=== PATIENT | male | born 1965 | race Caucasian/White ===

== ENCOUNTER 2017-01-18 18:27 | Emergency (ER) | payer MEDICAID ==
--- NOTE | 2017-01-18 18:33 | EDPHY ---
H & P HPI/ROS: CHIEF COMPLAINT: EtOH. HISTORY OF PRESENT ILLNESS: The patient is a 51-year-old male with alcoholism who presents in PD custody for alcohol intoxication. He was intoxicated in public. PD brought him here for med clearance. He is on an [facility] hold. Unclear how much he drank today. He has no complaints at this time. No recent illness. REVIEW OF SYSTEMS: A complete 10-point review of systems was performed and is negative except for those items mentioned in the HPI. Past Medical/Surgical History: Denies. Social History: Alcohol abuse. Physical Exam: General Appearance: Alert, slurred speech, speaking loudly Eyes: Pupils equal and round, no conjunctival pallor ENT, Mouth: Mucous membranes moist Neck: Normal inspection Respiratory: Lungs are clear to auscultation, no wheezing Cardiovascular: Regular rate and rhythm Gastrointestinal: Abdomen is soft and non-tender Neurological: A&O, nonfocal, steady gait Skin: Warm and dry Extremities: Normal inspection Psychiatric: Mood and affect normal Constitutional: Initial Vital Signs Temperature (C) 36.5 C 01/18/17 18:27 Heart Rate 104 H 01/18/17 18:27 Respiratory Rate 16 01/18/17 18:27 Blood Pressure 130/88 H 01/18/17 18:27 O2 Sat (%) 98 01/18/17 18:27 O2 Delivery Mode Room Air Allergies/Adverse Reactions: No Known Allergies Allergy (Verified 09/27/16 20:54) Home Medications: Medication Instructions Recorded NK [No Known Home Meds] 09/27/16 Medical Decision Making ED Course/Re-evaluation: Patient's alcohol level is 277. He has been med cleared for the [facility]. Departure - Departure Disposition: Home, Routine, Self-Care Clinical Impression: Alcohol intoxication Condition: Good Instructions: Alcohol Intoxication (ED) Additional Instructions: Return for any worsening of condition. Referrals: [facility] 24 Hours [Outside] - As per Instructions Report Scribed for: Aziza Tamez Report Scribed by: Amado Lugo Date of Report: 01/18/17 Time of Report: 18:36 Physician Review and Approval Statement: 01/18/17 18:38 Portions of this note were transcribed by a medical customer service representative. I personally performed a history, physical exam, medical decision making, and confirmed accuracy of information the transcribed note.
[2017-01-18 18:45] VITALS: BP 130/88; PULSE 104; RESP 16; TEMP 97.7; O2SAT 98
== END 2017-01-18 19:06 | disposition home or self-care (01) ==
LOC: EDUNIT#
DX: F10.129 Alcohol abuse with intoxication, unspecified (principal)

== ENCOUNTER 2017-06-26 16:48 | Emergency (ER) | payer MEDICAID ==
--- NOTE | 2017-06-26 16:57 | EDPHY ---
H & P HPI/ROS: HPI CHIEF COMPLAINT: Alcohol intoxication, unable to walk HISTORY OF PRESENT ILLNESS: This patient 52-year-old male homeless, daily alcohol use, tells me drank a large amount of vodka this evening. He presents emergency room by [facility] as he is unable to walk. No trauma. Past Medical History: Chronic alcohol use Past Surgical History: Denies recent surgical history Social History: Daily alcohol use, smokes tobacco, denies illicit drugs Family History: Noncontributory ROS REVIEW OF SYSTEMS: A comprehensive 10 point review of systems is otherwise negative aside from elements mentioned in the history of present illness. Exam Constitutional intoxicated, smells of alcohol, pleasant, triage nursing summary reviewed, vital signs reviewed, awake/alert. Eyes normal conjunctivae and sclera, EOMI, PERRLA. HENT normal inspection, atraumatic, moist mucus membranes, no epistaxis, neck supple/ no meningismus, no raccoon eyes. Respiratory clear to auscultation bilaterally, normal breath sounds, no respiratory distress, no wheezing. Cardiovascular rate normal, regular rhythm, no murmur, no edema, distal pulses normal. Gastrointestinal soft, non-tender, no rebound, no guarding, normal bowel sounds, no distension, no pulsatile mass. Genitourinary no CVA tenderness. Musculoskeletal no midline vertebral tenderness, full range of motion, no calf swelling, no tenderness of extremities, no meningismus, good pulses, neurovascularly intact. Skin pink, warm, & dry, no rash, skin atraumatic. Neurologic awake, alert and oriented x 3, AAOx3, moves all 4 extremities equally, motor intact, sensory intact, CN II-XII intact, normal vision, normal speech. Psychiatric normal mood/affect. Heme/Lymph/Immune no lymphadenopathy. Differential Diagnosis: Includes but is not limited to in a particular order acute alcohol intoxication, alcohol intoxication causing him unable to walk. Medical Decision Making: Plan for this patient breath alcohol. Watch closely for sobriety. Once sober unable to ambulate he can be discharged to the [facility]. Re-evaluation: Breath alcohol 224. Will attempt to ambulate this patient. If he can ambulate safely he can be discharged to the [facility]. Source: Patient, EMS - Personal History Tetanus Vaccine Date: < 10 years - Medical/Surgical History Hx Asthma: No Hx Chronic Respiratory Disease: No Hx Diabetes: No Hx Cardiac Disease: No Hx Renal Disease: No Hx Cirrhosis: No Hx Alcoholism: No Hx HIV/AIDS: No Hx Splenectomy or Spleen Trauma: No Other PMH: bilateral knee pain especially left knee, broken fibula,. IV drug use, PTSD, pt states he was diagnosed with bipolar - Social History Smoking Status: Current every day smoker Constitutional: Initial Vital Signs Temperature (C) 36.8 C 06/26/17 16:48 Heart Rate 102 H 06/26/17 16:48 Respiratory Rate 14 06/26/17 16:48 Blood Pressure 106/72 06/26/17 16:48 O2 Sat (%) 95 06/26/17 16:48 O2 Delivery Mode Room Air O2 (L/minute) 2 Allergies/Adverse Reactions: No Known Allergies Allergy (Verified 09/27/16 20:54) Home Medications: Medication Instructions Recorded NK [No Known Home Meds] 09/27/16 Medical Decision Making - Data Points Medications Given: Discontinued Medications Chlordiazepoxide (Librium 25 Mg Prepack#6) [facility] Stop: 06/26/17 19:44 Last Admin: 06/26/17 19:58 Dose: 1 btl Departure - Departure Disposition: Home, Routine, Self-Care Clinical Impression: Alcoholic intoxication Qualifiers: Complication of substance-induced condition: uncomplicated Qualified Code(s): F10.920 - Alcohol use, unspecified with intoxication, uncomplicated Condition: Good Instructions: Alcohol Intoxication (ED) Referrals: Patient,NotPresent [Primary Care Provider] - As per Instructions
[2017-06-26] MEDS ORDERED: CHLORDIAZEPOXIDE 25MG PREPK#6 BTL TAKEHOME ONE (19:43)
[2017-06-26 20:01] VITALS: BP 122/74; PULSE 97; RESP 18; TEMP 98.4; O2SAT 91
== END 2017-06-26 20:15 | disposition home or self-care (01) ==
LOC: EDUNIT#
DX: F10.120 Alcohol abuse with intoxication, uncomplicated (principal); F17.200 Nicotine dependence, unspecified, uncomplicated

== ENCOUNTER 2017-12-05 22:19 | Emergency (ER) | payer SELFPAY ==
[2017-12-05 22:23] VITALS: RESP 16; TEMP 98.2
--- NOTE | 2017-12-05 22:33 | EDPHY ---
H & P Time Seen by Provider: 12/05/17 22:29 HPI/ROS: CHIEF COMPLAINT: Right wrist pain HISTORY OF PRESENT ILLNESS: 52-year-old ambidextrous male states that last evening approximately 2 hr ago he slipped on ice and on outstretched right hand. No paresthesia. No sensory or motor deficit. PHYSICAL EXAM (Prior to examination, patient consented to physical exam, hands were washed and my usual and customary physical exam procedures followed) 1) GENERAL: Well-developed, well-nourished, alert and oriented. Appears to be in no acute distress. 2) HEAD: Normocephalic 3) HEENT: Pupils equal, round, reactive to light bilaterally. 4) LUNGS: Breathing comfortably. 5) MUSCULOSKELETAL: Tender to palpation with soft tissue swelling right distal radius. Intact skin. Soft compartments. Normal coloration. 6) SKIN: Intact 7) VASCULAR: pulses and cap refill present are brisk 8) NEUROLOGIC: Radial, ulnar, median nerve function intact with no deficits appreciated on exam DIFFERENTIAL DIAGNOSIS: in no particular order including but not limited to fracture, sprain, compartment syndrome Procedure: Splint A splint was applied by ER electrical equipment technician. After application of the splint I returned and re-examined the patient. The splint was adequately immobilizing the joint and distal to the splint the patient's circulation and sensation were intact. Patient shows no signs of compartment syndrome. Was given orthopedic precautions. Smoking Status: Current every day smoker Constitutional: Initial Vital Signs Temperature (C) 36.8 C 12/05/17 22:21 Heart Rate 104 H 12/05/17 22:21 Respiratory Rate 16 12/05/17 22:21 Blood Pressure 122/86 H 12/05/17 22:21 O2 Sat (%) 95 12/05/17 22:21 O2 Delivery Mode Room Air Allergies/Adverse Reactions: No Known Allergies Allergy (Verified 09/27/16 20:54) Home Medications: Medication Instructions Recorded NK [No Known Home Meds] 09/27/16 MDM/Departure - MDM Procedures: Procedure: Splint A Velcro volar splint was applied by ER electrical equipment technician. After application of the splint I returned and re-examined the patient. The splint was adequately immobilizing the joint and distal to the splint the patient's circulation and sensation were intact. Patient shows no signs of compartment syndrome. Was given orthopedic precautions. Medications Given: Discontinued Medications Ibuprofen (Motrin) 800 mg PO EDNOW ONE Stop: 12/05/17 23:22 Last Admin: 12/05/17 23:22 Dose: 800 mg Oxycodone/Acetaminophen (Percocet 5/325) 1 tab PO EDNOW ONE Stop: 12/05/17 23:26 Last Admin: 12/05/17 23:27 Dose: 1 tab - Depart Disposition: Home, Routine, Self-Care Clinical Impression: Distal radius fracture, right Qualifiers: Encounter type: initial encounter Fracture type: closed Fracture morphology: other intra-articular Qualified Code(s): S52.571A - Other intraarticular fracture of lower end of right radius, initial encounter for closed fracture Condition: Good Instructions: Wrist Fracture in Adults (ED) Additional Instructions: Return to the ER immediately if you experience discoloration, have worsening pain, numbness, tingling, or any other symptoms that concern you. If you received x-rays in the emergency department today, be advised, that ligamentous , tendon, muscular, and other non-bony injury cannot be fully ruled out. Try to keep your affected extremity elevated above the level of your chest, and keep cold packs on the affected area, for the next 48 hours. Adult Pain & Fever Control: We recommend Acetaminophen (Tylenol) and Ibuprofen (Motrin,Advil) for pain and fever control. When fever is high or pain severe, both drugs can be used at the same time, but at different intervals. Please note the time differences. Your dose is: Acetaminophen 650mg every 4 to 6 hours Ibuprofen 600mg every 6 hours with food OR Note: do not take Acetaminophen with Hydrocodone (Vicodin, Lortab) or Oycodone (Percocet). These medications also contain Acetaminophen. No more than 3000mg of Acetaminophen should be taken in 24 hours (for an adult). Referrals: Syed Ramirez MD [Medical Doctor] - 2-3 days, call for appt.
[2017-12-05] MEDS ORDERED: IBUPROFEN 800 MG TAB PO ONE ×2 (23:19→23:21)
[2017-12-05 23:24] VITALS: BP 109/90; PULSE 99; O2SAT 97
[2017-12-05] MEDS ORDERED: OXYCODONE/APAP 5/325 TAB PO ONE (23:25)
== END 2017-12-05 23:24 | disposition home or self-care (01) ==
DX: S52.571A Other intraarticular fracture of lower end of right radius, initial encounter for closed fracture (principal); F17.200 Nicotine dependence, unspecified, uncomplicated; W00.0XXA Fall on same level due to ice and snow, initial encounter
CPT/HCPCS: L3908

== ENCOUNTER 2018-02-05 22:25 | Emergency (ER) | payer SELFPAY ==
--- NOTE | 2018-02-05 22:37 | EDPHY ---
H & P Stated Complaint: R KNEE/R WRIST PAIN, SEPARATE INJURIES/ SEVERAL WEEKS PRIOR Time Seen by Provider: 02/05/18 22:37 HPI/ROS: HPI CHIEF COMPLAINT: Right wrist pain, right knee pain status post fall 10-14 days ago HISTORY OF PRESENT ILLNESS: Patient is a 52-year-old male, presents emergency room after he had a fall at some point in last 2 weeks. He thinks 10-14 days ago. Patient states that he fell on his right wrist right knee. Since then he has had ongoing pain. Currently complains of 3/10 pain. Denies any other areas of injury. Past Medical History: Alcoholism, methamphetamine abuse, polysubstance abuse, homelessness Past Surgical History: No recent surgery Social History: Homeless, polysubstance abuse. Most recently did methamphetamine this morning. Family History: Noncontributory ROS REVIEW OF SYSTEMS: A comprehensive 10 point review of systems is otherwise negative aside from elements mentioned in the history of present illness. Exam Constitutional triage nursing summary reviewed, vital signs reviewed, awake/ alert. Eyes normal conjunctivae and sclera, EOMI, PERRLA. HENT normal inspection, atraumatic, moist mucus membranes, no epistaxis, neck supple/ no meningismus, no raccoon eyes. Respiratory clear to auscultation bilaterally, normal breath sounds, no respiratory distress, no wheezing. Cardiovascular rate normal, regular rhythm, no murmur, no edema, distal pulses normal. Gastrointestinal soft, non-tender, no rebound, no guarding, normal bowel sounds, no distension, no pulsatile mass. Genitourinary no CVA tenderness. Musculoskeletal examination of the right wrist and right knee are unremarkable for acute trauma. I do not appreciate any significant traumatic injury on exam , no midline vertebral tenderness, full range of motion, no calf swelling, no tenderness of extremities, no meningismus, good pulses, neurovascularly intact. Skin pink, warm, & dry, no rash, skin atraumatic. Neurologic awake, alert and oriented x 3, AAOx3, moves all 4 extremities equally, motor intact, sensory intact, CN II-XII intact, normal cerebellar, normal vision, normal speech. Psychiatric normal mood/affect. Heme/Lymph/Immune no lymphadenopathy. Differential Diagnosis: Includes but is not limited to in a particular order right wrist contusion, right wrist sprain, right wrist fracture, right wrist soft tissue injury, right knee contusion, right knee sprain, right knee fracture Medical Decision Making: Plan for this patient x-ray right wrist, right knee x- ray. Re-evaluation: X-ray of the knee and x-ray of the wrist negative for acute new fracture. X- ray of the wrist does show an old fracture. Was seen on x-ray 3 months ago. He will be placed in a Velcro splint. And recommend follow up with Orthopedics on outpatient basis. Source: Patient - Personal History Current Tetanus Diphtheria and Acellular Pertussis (TDAP): No Tetanus Vaccine Date: < 10 years - Medical/Surgical History Hx Asthma: No Hx Chronic Respiratory Disease: No Hx Diabetes: No Hx Cardiac Disease: No Hx Renal Disease: No Hx Cirrhosis: No Hx Alcoholism: No Hx HIV/AIDS: No Hx Splenectomy or Spleen Trauma: No Other PMH: bilateral knee pain especially left knee, broken fibula,. IV drug use, PTSD, pt states he was diagnosed with bipolar, METH USE - Social History Smoking Status: Light smoker Constitutional: Initial Vital Signs Temperature (C) 37.2 C 02/05/18 22:33 Heart Rate 107 H 02/05/18 22:33 Respiratory Rate 16 02/05/18 22:33 Blood Pressure 141/115 H 02/05/18 22:33 O2 Sat (%) 95 02/05/18 22:33 O2 Delivery Mode Room Air Allergies/Adverse Reactions: No Known Allergies Allergy (Verified 09/27/16 20:54) Home Medications: Medication Instructions Recorded NK [No Known Home Meds] 09/27/16 Departure - Departure Disposition: Home, Routine, Self-Care Clinical Impression: Contusion Qualifiers: Encounter type: initial encounter Contusion area: lower leg Laterality: right Qualified Code(s): S80.11XA - Contusion of right lower leg, initial encounter Condition: Good Instructions: Contusion in Adults (ED) Additional Instructions: 1. I recommend that you ice her joints. Ice her knee and wrist. 2. I recommend that you keep your leg elevated. Referrals: NONE *PRIMARY CARE P,. [Primary Care Provider] - As per Instructions Conner Evans MD [Medical Doctor] - As per Instructions
[2018-02-05 22:42] VITALS: BP 141/115; PULSE 107; RESP 16; TEMP 99; O2SAT 95
[2018-02-05] MEDS ORDERED: IBUPROFEN 800 MG TAB PO ONE (23:31)
== END 2018-02-05 23:35 | disposition home or self-care (01) ==
DX: S80.11XA Contusion of right lower leg, initial encounter (principal); F17.200 Nicotine dependence, unspecified, uncomplicated; W19.XXXA Unspecified fall, initial encounter

== ENCOUNTER 2018-05-22 06:28 | Emergency (ER) | payer SELFPAY ==
[~2018-05-22 06:28] MED LIST: CEPHALEXIN 500 MG CAP PO SCH
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
[2018-05-22] MEDS ORDERED: IBUPROFEN 200 MG TAB PO ONE (08:22)
[2018-05-22 08:40] VITALS: BP 156/87
== END 2018-05-22 08:41 | disposition home or self-care (01) ==
DX: L03.011 Cellulitis of right finger (principal); F17.210 Nicotine dependence, cigarettes, uncomplicated

== ENCOUNTER 2018-05-28 12:47 | Emergency (ER) | payer SELFPAY ==
[2018-05-28 12:51] VITALS: BP 121/95
--- NOTE | 2018-05-28 13:01 | EDPHY ---
H & P Time Seen by Provider: 05/28/18 12:52 HPI/ROS: CHIEF COMPLAINT: Recheck right index finger HISTORY OF PRESENT ILLNESS: 53-year-old homeless male arrives in custody of police for medical screening prior to incarceration. He has a history of alcohol abuse, PTSD, bipolar disorder, was seen the ER 6 days ago concerned about his right index finger after he brought the tip of his index finger 10 days prior, started on Keflex which he has now lost. Took 2 dosages of Keflex. Up-to-date tetanus. PHYSICAL EXAM (Prior to examination, patient consented to physical exam, hands were washed and my usual and customary physical exam procedures followed) 1) GENERAL: Well-developed, well-nourished, alert and oriented. Appears to be in no acute distress. 2) HEAD: Normocephalic 3) HEENT: sclera anicteric 4) LUNGS: Breathing comfortably. 5) SKIN: Right index finger granulating tissue to the distal aspect with negative kanavel sign, no discharge, no purulence, no fetid odor, no pain along the flexor tendon sheath. There is slight erythema along the skin edges however this is subtle cellulitic change. Smoking Status: Heavy smoker Constitutional: Initial Vital Signs Temperature (C) 36.6 C 05/28/18 12:49 Heart Rate 104 H 05/28/18 12:49 Respiratory Rate 18 05/28/18 12:49 Blood Pressure 121/95 H 05/28/18 12:49 O2 Sat (%) 93 05/28/18 12:49 O2 Delivery Mode Room Air Allergies/Adverse Reactions: No Known Allergies Allergy (Verified 05/28/18 12:48) Home Medications: Medication Instructions Recorded Cephalexin [Keflex] 500 mg PO TID 10 Days cap 05/28/18 Sulfamethox/Tmp 800/160 mg 1 tab PO BID@1000,2200 10 Days tab 05/28/18 [Bactrim Ds] MDM/Departure - MDM ED Course/Re-evaluation: I reviewed the patient's old medical records. On exam today he has mild signs of cellulitis around his wound however he has negative kanavel signs, no clinical indication of deep space infection, infectious tenosynovitis or need for hospitalization or emergent hand surgery consultation. He has been given a prescription for Keflex and Bactrim, discharged back to the [facility]. Usual and customary wound precautions instructions provided. I saw this patient independently based on established practice protocols. Care of patient under supervision of primary supervising physician Dr Abernathy . - Depart Disposition: Law Enforcement/Court/[facility] Clinical Impression: Cellulitis, finger Qualifiers: Laterality: right Qualified Code(s): L03.011 - Cellulitis of right finger Condition: Good Instructions: Cellulitis (ED) Additional Instructions: Return to the ER if you develop redness, swelling, discharge, warmth to the wound, red streaks going up your arm, or any other symptoms that concern you. Prescriptions: Cephalexin [Keflex] 500 mg PO TID 10 Days cap Sulfamethox/Tmp 800/160 mg [Bactrim Ds] 1 tab PO BID@1000,2200 10 Days tab Referrals: Follow-up, with the [place] [facility] nurse in 1 day [Other] - As per Instructions
== END 2018-05-28 13:13 ==
LOC: EEVIPCON 12:47
DX: L03.011 Cellulitis of right finger (principal); F17.200 Nicotine dependence, unspecified, uncomplicated

== ENCOUNTER 2018-08-18 01:20 | Emergency (ER) | payer SELFPAY ==
[2018-08-18] MEDS ORDERED: IBUPROFEN 600 MG TAB PO ONE (02:12)
--- NOTE | 2018-08-18 03:19 | EDPHY ---
H & P Stated Complaint: R ELBOW INJ 2 WKS/HITTING IT ON DOOR JAM Time Seen by Provider: 08/18/18 02:38 HPI/ROS: Chief Complaint: Elbow pain HPI: 53-year-old male presenting with right elbow pain for the last 2 weeks after he struck it on a door. Patient states that the pain is been persisting. He did not initially follow-up with any care. He has not been taking any medicines. Does have a prior injury. No redness, no swelling, no fevers or chills. ROS: 10 systems were reviewed and were negative except those elements noted in the HPI. PMH: Denies Social History: Positive smoking, positive alcohol Family History: non-contributory Physical Exam: General: Awake, alert, no acute distress Right elbow, nontender, no erythema, there is small abrasions over the olecranon which do not appear infected, no bony tenderness, full range of motion without pain. Skin: No rash - Personal History Current Tetanus Diphtheria and Acellular Pertussis (TDAP): Unsure Tetanus Vaccine Date: < 10 years - Medical/Surgical History Hx Asthma: No Hx Chronic Respiratory Disease: No Hx Diabetes: No Hx Cardiac Disease: No Hx Renal Disease: No Hx Cirrhosis: No Hx Alcoholism: Yes Hx HIV/AIDS: No Hx Splenectomy or Spleen Trauma: No Other PMH: bilateral knee pain especially left knee, broken fibula,. IV drug use, PTSD, pt states he was diagnosed with bipolar, METH USE - Social History Smoking Status: Heavy smoker Constitutional: Initial Vital Signs Temperature (C) 37.4 C 08/18/18 01:28 Heart Rate 107 H 08/18/18 01:28 Respiratory Rate 16 08/18/18 01:28 Blood Pressure 130/80 H 08/18/18 01:28 O2 Sat (%) 96 08/18/18 01:28 O2 Delivery Mode Room Air Allergies/Adverse Reactions: No Known Allergies Allergy (Verified 05/28/18 12:48) Home Medications: Medication Instructions Recorded NK [No Known Home Meds] 08/18/18 Medical Decision Making ED Course/Re-evaluation: Right elbow x-ray is negative. No signs of acute injury. Will discharge with follow-up as an outpatient. - Data Points Medications Given: Discontinued Medications Ibuprofen (Motrin) 600 mg PO EDNOW ONE Stop: 08/18/18 02:13 Last Admin: 08/18/18 02:37 Dose: 600 mg Departure - Departure Disposition: Home, Routine, Self-Care Clinical Impression: Elbow pain Condition: Good Instructions: Arthralgia (ED) Additional Instructions: Follow up at [facility] in 3-4 days for further evaluation. You may alternate acetaminophen with ibuprofen as needed for pain. Referrals: [facility],. [Clinic] - As per Instructions
[2018-08-18 05:02] VITALS: BP 129/83
== END 2018-08-18 05:01 | disposition home or self-care (01) ==
DX: M25.521 Pain in right elbow (principal); W22.8XXA Striking against or struck by other objects, initial encounter

== ENCOUNTER 2018-11-14 13:10 | Emergency (ER) | payer MEDICAID ==
[~2018-11-14 13:10] MED LIST changes: -CEPHALEXIN 500 MG CAP PO SCH; +SULFAMETHOX/TMP 800/160 MG 1 TAB PO SCH
--- NOTE | 2018-11-14 13:43 | EDPHY ---
H & P Stated Complaint: R index finger poss infection Time Seen by Provider: 11/14/18 13:43 HPI/ROS: CHIEF COMPLAINT: Chronic wound on right index finger HISTORY OF PRESENT ILLNESS: The patient presents to the ED with a chronic wound on the dorsal aspect of his right index finger which is present for the past 2-3 months. The patient has some skin cracking which developed in the area. It has been slow to heal. The patient denies any fever. There is small amount of surrounding erythema. He has normal range of motion of the finger without significant pain. The patient has a history drug and polysubstance abuse. He is not interested in detox. The patient denies any acute abdominal pain, vomiting or other concerns. REVIEW OF SYSTEMS: A comprehensive 10 point review of systems is otherwise negative aside from elements mentioned in the history of present illness. Source: Patient Exam Limitations: No limitations - Personal History Current Tetanus/Diphtheria Vaccine: Yes Tetanus Vaccine Date: < 10 years - Medical/Surgical History Hx Asthma: No Hx Chronic Respiratory Disease: No Hx Diabetes: No Hx Cardiac Disease: No Hx Renal Disease: No Hx Cirrhosis: No Hx Alcoholism: Yes Hx HIV/AIDS: No Hx Splenectomy or Spleen Trauma: No Other PMH: bilateral knee pain especially left knee, broken fibula,. IV drug use, PTSD, pt states he was diagnosed with bipolar, METH USE - Social History Smoking Status: Heavy smoker - Physical Exam Exam: General Appearance: Alert, no distress Head: Atraumatic Eyes: Pupils equal, round, reactive ENT, Mouth: No hemotympanum, no oral trauma Neck: Nontender, trachea midline Respiratory: No chest wall tender, subcutaneous air, lungs clear bilaterally Cardiovascular: Regular rate and rhythm Abdomen: Abdomen is soft and nontender, pelvis stable Skin: Superficial cellulitis noted to the dorsal aspect of the right index finger with area of skin cracking and hyperkeratosis. Back: No midline T/L/S pain Extremities: No clinical evidence of a septic arthritis, tenosynovitis or necrotizing fasciitis Neurological: A&Ox3, normal motor function, normal sensory exam Constitutional: Initial Vital Signs Temperature (C) 36.6 C 11/14/18 13:26 Heart Rate 94 11/14/18 13:26 Respiratory Rate 16 11/14/18 13:26 Blood Pressure 118/82 H 11/14/18 13:26 O2 Sat (%) 96 11/14/18 13:26 O2 Delivery Mode Room Air Allergies/Adverse Reactions: No Known Allergies Allergy (Verified 11/14/18 13:25) Home Medications: Medication Instructions Recorded NK [No Known Home Meds] 08/18/18 Medical Decision Making ED Course/Re-evaluation: The patient is started on oral Bactrim for a mild soft tissue infection. The patient is given the contact number of our on-call hand surgeon for further evaluation and management. He has no clinical evidence of a septic arthritis, abscess, tenosynovitis or necrotizing fasciitis. Departure - Departure Disposition: Home, Routine, Self-Care Clinical Impression: Cellulitis of finger of right hand Condition: Good Instructions: Cellulitis (ED) Additional Instructions: 1. Please take antibiotics as directed for next 10 days. 2. Please schedule a follow-up appointment with [facility] for a recheck within the week. 3. He have been given the contact number of our on-call hand surgeon Dr. Luna Referrals: Dontae Luna MD [Medical Doctor] - As per Instructions
[2018-11-14] MEDS ORDERED: SULFAMETHOX/TMP 800/160 MG 1 TAB PO ONE (13:55)
[2018-11-14] MEDS ORDERED: SULFAMETHOX/TMP 800/160 MG 1 TAB ONE (13:55)
[2018-11-14] MEDS ORDERED: SULFAMET/TMP DS PREPACK#2 BTL TAKEHOME ONE (14:07)
[2018-11-14] MEDS ORDERED: CHLORDIAZEPOXIDE 25MG PREPK#6 BTL TAKEHOME ONE ×2 (14:31→14:32)
[2018-11-14 14:37] VITALS: BP 122/87
== END 2018-11-14 14:37 | disposition home or self-care (01) ==
DX: L03.011 Cellulitis of right finger (principal)

== ENCOUNTER 2018-11-29 03:33 | Emergency (ER) | payer MEDICAID ==
--- NOTE | 2018-11-29 03:41 | EDPHY ---
H & P - Personal History Tetanus Vaccine Date: < 10 years - Medical/Surgical History Hx Asthma: No Hx Chronic Respiratory Disease: No Hx Diabetes: No Hx Cardiac Disease: No Hx Renal Disease: No Hx Cirrhosis: No Hx Alcoholism: Yes Hx HIV/AIDS: No Hx Splenectomy or Spleen Trauma: No Other PMH: bilateral knee pain especially left knee, broken fibula,. IV drug use, PTSD, pt states he was diagnosed with bipolar, METH USE - Social History Smoking Status: Heavy smoker Time Seen by Provider: 11/29/18 03:38 HPI/ROS: Chief Complaint: Altered mental status HPI: 53-year-old male's brought in by EMS from the [facility] for behavioral changes. [place] [employer] officer they have encounter the patient multiple times this evening and ultimately took him to the alf. He is known to be a methamphetamine user. Patient was released from the alf and walked to the arc. There EMS was called for evaluation. On arrival the patient was argumentative and became combative. EMS administered 5 mg of Versed intramuscularly. Patient brought here restrained. Is now sedate. Per EMS are no obvious signs of trauma. information security officer who is present in the emergency department states that he does not know of any trauma to the patient and that the patient told him earlier this evening that he last used meth yesterday. Patient did not meet any criteria for mental health hold during initial police encounter. ROS: Unavailable secondary to the patient's altered mental status PMH: Unknown Social History: Meth use per EMS and police Family History: non-contributory Physical Exam: Gen: Somnolent, maintaining airway HEENT: Nose: no rhinorrhea Eyes: PERRLA, EOMI Mouth: Moist mucosa Neck: Supple, no JVD Chest: nontender, lungs clear to auscultation Heart: S1, S2 normal, no murmur Abd: Soft, non-tender, no guarding Back: no CVA tenderness, no midline tenderness Ext: no edema, non-tender Skin: no rash Neuro: CN II-XII intact, Sensation grossly intact, Strength 5/5 in bilateral upper and lower extremities (Clarence Quach) Constitutional: Initial Vital Signs Temperature (C) 36.7 C 11/29/18 03:35 Heart Rate 92 11/29/18 03:35 Respiratory Rate 18 11/29/18 03:35 Blood Pressure 123/81 H 11/29/18 03:35 O2 Sat (%) 96 11/29/18 03:35 O2 Delivery Mode Room Air Allergies/Adverse Reactions: No Known Allergies Allergy (Verified 11/29/18 03:47) Home Medications: Medication Instructions Recorded Sulfamethox/Tmp 800/160 mg 1 tab PO BID #20 tab 11/14/18 [Bactrim DS] Medical Decision Making ED Course/Re-evaluation: This patient was turned over to fl at change of shift. This patient is alert and awake and ready for discharge. (Nain Whittington) Departure - Departure Disposition: Home, Routine, Self-Care Clinical Impression: Drug abuse and dependence Condition: Good Instructions: Polysubstance Abuse (ED) Referrals: Patient,NotPresent [Unknown] - As per Instructions
[2018-11-29 08:23] VITALS: BP 155/92
== END 2018-11-29 08:28 | disposition home or self-care (01) ==
LOC: EDUNIT#
DX: F19.10 Other psychoactive substance abuse, uncomplicated (principal)

== ENCOUNTER 2019-01-12 08:09 | Emergency (ER) | payer MEDICAID ==
[2019-01-12] MEDS ORDERED: SULFAMETHOX/TMP 800/160 MG 1 TAB PO ONE (09:21)
--- NOTE | 2019-01-12 09:21 | EDPHY ---
General Time Seen by Provider: 01/12/19 09:02 Narrative: CLINICAL IMPRESSION: Right 2nd finger inflammation and infection ASSESSMENT/PLAN: 53-year-old homeless, right hand dominant, IV drug abuser presents to the emergency department with 3 months of intermittent right 2nd and 3rd finger swelling. Patient reports being seen in the emergency department a month ago for the same and was given antibiotics. He does have very mild erythema and swelling noted to the digit but with no lymphangitis, full range of motion, intact neurovascular exam, negative Kanavel sign, and no clinical indication to suggest tenosynovitis, septic joint, gouty arthritis, necrotizing fasciitis, osteomyelitis. Patient was given prescriptions for Bactrim and Keflex, encouraged to follow up with [facility], warning signs for return to emergency department sooner outlined in discharge. DIFFERENTIAL DX: Differential includes but not limited to finger cellulitis, tenosynovitis, arthritis, septic joint, gouty arthritis CHIEF COMPLAINT: Right 2nd finger swelling HPI: 53-year-old right hand dominant IV drug abuser presents to the emergency department with complaints of 3 months of right 2nd finger swelling. Patient was apparently seen in this emergency department a month ago and received IV antibiotics. He reports the finger did get better but has been swelling again over the last several weeks. He has full range of motion of the finger. No reported fevers or chills. He states he has not done IV drugs recently. He is homeless. He does not know if he has a history of MRSA. He believes his tetanus is up-to-date. He does have Medicaid coverage and can get prescriptions. He has several old abrasions and cuts to the finger. No red streaks up the arm. No wrist or forearm swelling. PAST MEDICAL HISTORY: Multiple orthopedic injuries, IV drug abuse, PTSD, bipolar See triage summary and nurse notes for addition applicable history Pertinent Past Surgical History: Orthopedic surgeries Family History: Not obtained Social History: Homeless, abuses IV drugs including methamphetamine REVIEW OF SYSTEMS: A full 10 point review of systems was negative except for those mentioned in HPI. PHYSICAL EXAM: General Appearance: Alert, oriented, appropriate, cooperative, NAD, well hydrated, non-toxic appearing, tachycardic, hypertensive, no hypoxia. Respiratory: There are no retractions, lungs are clear to auscultation. Cardiac: Tachycardic, regular rhythm, no murmurs or gallops. Skin: Warm, dry, no rashes, no nodules on palpation. Musculoskeletal: Swelling noted to the 2nd and 3rd digits of the right hand. Intact flexion and extension. Negative Kanavel sign. No clinical signs of tenosynovitis, septic joint, necrotizing fasciitis, osteomyelitis, or deep space infection. No lymphangitis. Distal neurovascular exam intact. Several small, old, scabbed wounds on the nail bed and flexor surfaces of the fingers. MEDICAL DECISION MAKING: Patient was seen independently. Secondary supervising physician at time of evaluation was: Dr. Tyler. Diagnosis: Finger infection. New, requires workup Summary: See Assessment and Plan for summary of ED visit Patient Progress: Stable for discharge. - History Smoking Status: Heavy smoker - Objective Vital Signs: Initial Vital Signs Temperature (C) 37.3 C 01/12/19 08:17 Heart Rate 105 H 01/12/19 08:17 Respiratory Rate 16 01/12/19 08:17 Blood Pressure 160/109 H 01/12/19 08:17 O2 Sat (%) 98 01/12/19 08:17 O2 Delivery Mode Room Air Allergies/Adverse Reactions: No Known Allergies Allergy (Verified 11/29/18 03:47) Home Medications: Medication Instructions Recorded Cephalexin [Keflex] 500 mg PO QID #40 cap 01/12/19 Sulfamethox/Tmp 800/160 mg 1 tab PO BID #14 tab 01/12/19 [Bactrim Ds] Departure - Departure Disposition: Home, Routine, Self-Care Clinical Impression: Cellulitis of finger of right hand Condition: Good Instructions: Cellulitis (ED) Additional Instructions: DISCHARGE INSTRUCTIONS FROM YOUR DOCTOR Thank you for visiting our emergency department today. You were treated by a physician per diem physical therapist assistant today and your case was reviewed with our ED Attending physician. Please keep in mind that discharge from the emergency department does not mean that there is nothing wrong - it simply means that we have not identified an emergency condition that requires further evaluation or treatment in the hospital. You should always plan to follow up with primary care for re- evaluation of your condition in the next 2-3 days. If you have been referred to a specialist, please call as soon as possible (today or tomorrow) to schedule your follow up appointment at the appropriate time. YOU WERE STARTED ON ANTIBIOTICS TODAY FOR AN INFECTION IN THE FINGER. FIRST DOSE WAS GIVEN IN THE EMERGENCY DEPARTMENT. PLEASE GO TO YOUR LOCAL [facility] WHERE YOU HAVE FILLED PRESCRIPTIONS IN THE PAST AND THEY SHOULD HAVE YOUR MEDICAID NUMBER ON FILE. PLEASE SEE [facility] FOR A FOLLOW-UP APPOINTMENT IN 2-3 DAYS. RETURN TO THE EMERGENCY DEPARTMENT FOR SIGNIFICANT INCREASE IN SWELLING, REDNESS, INABILITY TO FLEX OR EXTEND THE FINGER, SWELLING EXTENDING INTO THE PALM OF THE HAND, WRIST OR FOREARM, REDNESS OR RED STREAKS EXTENDING UP THE FOREARM, DEVELOPMENT OF FEVERS GREATER THAN 100.4, CHILLS, VOMITING, OR ANY OTHER CONCERNS. People present with illnesses and injuries in different ways, and it is always possible that we have missed something. You may always return for re-evaluation if symptoms worsen or if they are not improving or if you develop new/different symptoms. Again, thank you for choosing our emergency department. We hope that you feel better. Referrals: NONE *PRIMARY CARE P,. [Primary Care Provider] - As per Instructions [facility],. [Clinic] - 1-2 days without fail Prescriptions: Cephalexin [Keflex] 500 mg PO QID #40 cap Sulfamethox/Tmp 800/160 mg [Bactrim Ds] 1 tab PO BID #14 tab
[2019-01-12] MEDS ORDERED: CEPHALEXIN 500 MG CAP PO ONE (09:22)
[2019-01-12 09:36] VITALS: BP 148/94
== END 2019-01-12 09:41 | disposition home or self-care (01) ==
DX: L03.011 Cellulitis of right finger (principal); Z59.0 Homelessness; Z87.891 Personal history of nicotine dependence

== ENCOUNTER 2019-02-15 01:34 | Emergency (ER) | payer MEDICAID ==
[~2019-02-15 01:34] MED LIST changes: +CEPHALEXIN 500 MG CAP PO SCH
--- NOTE | 2019-02-15 02:01 | EDPHY ---
H & P Stated Complaint: r index finger infection x 2 months , not taking meds for Time Seen by Provider: 02/15/19 02:01 HPI/ROS: HPI CHIEF COMPLAINT: Possible finger infection. HISTORY OF PRESENT ILLNESS: Patient is a 53-year-old male, presents to the emergency room stating that he thinks his right index finger is infected. Patient reports that he was seen in the emergency room previously and prescribed antibiotics Keflex and Bactrim however he did not get these prescriptions filled nor did he take them. He tells me is unsure why. He denies any new pain today, denies any new swelling or redness. He has chronic scabs and chronic indurated hard skin on his index finger on the right hand as well as 3rd digit. I do not appreciate any significant redness, streaking, pus. I do not appreciate an active infection. He also states he suffers from arthritis. He is right-hand dominant. His right hand index finger, and 3rd digit have chronic scabs on them, indurated skin. No redness. No pus. No significant tenderness when I palpate. He is able to extend and flex them however due to the chronic skin changes and chronic scabs he is not able to fully flex and extend his index finger. Past Medical History: Significant medical history for bipolar disorder, IV drug use, previous hand and finger infection., polysubstance abuse, IV drug abuse methamphetamine Past Surgical History: Multiple orthopedic surgeries Social History: Homeless, polysubstance abuse. Family History: Noncontributory ROS REVIEW OF SYSTEMS: 10 Systems were reviewed and negative with the exception of the elements mentioned in the history of present illness. Exam Constitutional triage nursing summary reviewed, vital signs reviewed, awake/ alert. Vital signs stable. Afebrile. Eyes normal conjunctivae and sclera, EOMI, PERRLA. HENT normal inspection, atraumatic, moist mucus membranes, no epistaxis, neck supple/ no meningismus, no raccoon eyes. Respiratory clear to auscultation bilaterally, normal breath sounds, no respiratory distress, no wheezing. Cardiovascular rate normal, regular rhythm, no murmur, no edema, distal pulses normal. Gastrointestinal soft, non-tender, no rebound, no guarding, normal bowel sounds, no distension, no pulsatile mass. Genitourinary no CVA tenderness. Musculoskeletal Right hand: Good distal pulse, good cap refill, warm extremity. Specifically over the right index finger palmar side mid phalanx there is a callus, scab present. No pus, no redness, no drainage, on the dorsum side of the right index finger there is hard indurated skin that appears to be chronic, no signs of infection. On the 3rd digit right hand calluses are present. Again no signs of infection. no midline vertebral tenderness, full range of motion, no calf swelling, no tenderness of extremities, no meningismus, good pulses, neurovascularly intact. Skin pink, warm, & dry, no rash, skin atraumatic. Neurologic awake, alert and oriented x 3, AAOx3, moves all 4 extremities equally, motor intact, sensory intact, CN II-XII intact, normal cerebellar, normal vision, normal speech. Psychiatric normal mood/affect. Heme/Lymph/Immune no lymphadenopathy. Differential Diagnosis: But is not limited to in a particular order chronic hand pain, chronic and wounds, chronic finger infection, calluses and scabs. Medical Decision Making: I did recommend the patient that he does warm compresses or warm soaks 2 to 3 times a day to help with his calluses and scabs. I will give him another prescription for Keflex and Bactrim. He understands get these filled and take them complete the course. Will also give a referral to Hand surgery. Highly recommend he takes care of his hands, and follows up with his hand surgeon. Acute hands clean, warm soaks. Re-evaluation: Again I do not appreciate significant signs of infection on exam. He has multiple calluses. InCase any these calluses or scabs infected will placed on antibiotics since he did not get them filled previously. Again recommend warm compresses or warm soaks 2 to 3 times a day. Follow up with Hand surgery. Patient is comfortable this plan. Understands return emergency room if worsening symptoms. Source: Patient - Personal History Current Tetanus/Diphtheria Vaccine: Yes Current Tetanus Diphtheria and Acellular Pertussis (TDAP): Yes Tetanus Vaccine Date: < 10 years - Medical/Surgical History Hx Asthma: No Hx Chronic Respiratory Disease: No Hx Diabetes: No Hx Cardiac Disease: No Hx Renal Disease: No Hx Cirrhosis: No Hx Alcoholism: Yes Hx HIV/AIDS: No Hx Splenectomy or Spleen Trauma: No Other PMH: bilateral knee pain especially left knee, broken fibula,. IV drug use, PTSD, pt states he was diagnosed with bipolar, METH USE - Social History Smoking Status: Heavy smoker Constitutional: Initial Vital Signs Temperature (C) 36.4 C 02/15/19 01:38 Heart Rate 100 02/15/19 01:38 Respiratory Rate 18 02/15/19 01:38 Blood Pressure 157/106 H 02/15/19 01:38 O2 Sat (%) 98 02/15/19 01:38 O2 Delivery Mode Room Air Allergies/Adverse Reactions: No Known Allergies Allergy (Verified 02/15/19 01:40) Home Medications: Medication Instructions Recorded Cephalexin [Keflex] 500 mg PO QID #40 cap 01/12/19 Sulfamethox/Tmp 800/160 mg 1 tab PO BID #14 tab 01/12/19 [Bactrim Ds] Cephalexin [Keflex] 500 mg PO Q6H #28 cap 02/15/19 Sulfamethox/Tmp 800/160 mg 1 tab PO BID@1000,2200 #14 tab 02/15/19 [Bactrim Ds] Departure - Departure Disposition: Home, Routine, Self-Care Clinical Impression: Callus Cellulitis Qualifiers: Site of cellulitis: unspecified site Qualified Code(s): L03.90 - Cellulitis, unspecified Condition: Good Instructions: Cellulitis (ED) Additional Instructions: 1. Recommend warm compresses 2. Recommend antibiotics as prescribed. 3. Follow up with Hand surgery. 4. Return to the emergency room if you have worsening pain, swelling, redness, signs of infection. Referrals: NONE *PRIMARY CARE P,. [Primary Care Provider] - As per Instructions [facility],. [Clinic] - As per Instructions Donald Fuller MD [Medical Doctor] - As per Instructions Prescriptions: Cephalexin [Keflex] 500 mg PO Q6H #28 cap Sulfamethox/Tmp 800/160 mg [Bactrim Ds] 1 tab PO BID@1000,2200 #14 tab
[2019-02-15 03:18] VITALS: BP 149/98
== END 2019-02-15 03:16 | disposition home or self-care (01) ==
DX: L03.90 Cellulitis, unspecified (principal); Z59.0 Homelessness

== ENCOUNTER 2019-04-18 00:52 | Emergency (ER) | payer MEDICAID ==
--- NOTE | 2019-04-18 00:58 | EDPHY ---
H & P Stated Complaint: right wrist injury Time Seen by Provider: 04/18/19 00:58 HPI/ROS: HPI CHIEF COMPLAINT: Right wrist pain. HISTORY OF PRESENT ILLNESS: Patient is a 54-year-old male, homeless, presents emergency room with right wrist pain. He states he fell in December and developed right wrist pain. He has had ongoing swelling and pain since then. He decided tonight to come to the emergency room for evaluation. He states when he fell in December injured his right wrist he never had evaluation. Complains of distal right radius pain. Past Medical History: Denies significant medical history Past Surgical History: Denies significant surgical history Social History: Homeless, history of substance abuse. Family History: Noncontributory ROS REVIEW OF SYSTEMS: 10 Systems were reviewed and negative with the exception of the elements mentioned in the history of present illness. Exam Constitutional triage nursing summary reviewed, vital signs reviewed, awake/ alert. Eyes normal conjunctivae and sclera, EOMI, PERRLA. HENT normal inspection, atraumatic, moist mucus membranes, no epistaxis, neck supple/ no meningismus, no raccoon eyes. Respiratory clear to auscultation bilaterally, normal breath sounds, no respiratory distress, no wheezing. Cardiovascular rate normal, regular rhythm, no murmur, no edema, distal pulses normal. Gastrointestinal soft, non-tender, no rebound, no guarding, normal bowel sounds, no distension, no pulsatile mass. Genitourinary no CVA tenderness. Musculoskeletal right wrist: Good radial pulse, good cap refill, mild tender palpation over the distal right wrist. Neurologic intact with good sales and merchandising associate strength, good cap refill, sensation intact. no midline vertebral tenderness, full range of motion, no calf swelling, no tenderness of extremities, no meningismus, good pulses, neurovascularly intact. Skin pink, warm, & dry, no rash, skin atraumatic. Neurologic awake, alert and oriented x 3, AAOx3, moves all 4 extremities equally, motor intact, sensory intact, CN II-XII intact, normal cerebellar, normal vision, normal speech. Psychiatric normal mood/affect. Heme/Lymph/Immune no lymphadenopathy. Differential Diagnosis: Includes but is not limited to in a particular order right wrist pain, right wrist contusion, wrist sprain, wrist fracture Medical Decision Making: Plan for this patient x-ray right wrist, ice pack, Tylenol re-evaluate. Re-evaluation: X-ray of the right wrist reviewed there appears to be an old distal right radius fracture. I do not appreciate acute fracture. Patient be splinted for immobilization and comfort. Recommend NSAIDs, ice. Recommend following up with orthopedic surgery. Referral be given. Discussed this at length with the patient. Of note right arm neurovascular intact good distal pulse, mild tender palpation distal radius. No compartment syndrome. No open wound. Good sensation, good cap refill, good radial pulse. Patient was splinted in a sugar-tong splint. He has a sling in place. He understands follow-up with Orthopedics Source: Patient - Personal History Current Tetanus/Diphtheria Vaccine: Yes Current Tetanus Diphtheria and Acellular Pertussis (TDAP): Yes Tetanus Vaccine Date: < 10 years - Medical/Surgical History Hx Asthma: No Hx Chronic Respiratory Disease: No Hx Diabetes: No Hx Cardiac Disease: No Hx Renal Disease: No Hx Cirrhosis: No Hx Alcoholism: Yes Hx HIV/AIDS: No Hx Splenectomy or Spleen Trauma: No Other PMH: bilateral knee pain especially left knee, broken fibula,. IV drug use, PTSD, pt states he was diagnosed with bipolar, METH USE - Social History Smoking Status: Heavy smoker Constitutional: Initial Vital Signs Temperature (C) 36.7 C 04/18/19 00:53 Heart Rate 116 H 04/18/19 00:53 Respiratory Rate 16 04/18/19 00:53 Blood Pressure 136/94 H 04/18/19 00:53 O2 Sat (%) 96 04/18/19 00:53 O2 Delivery Mode Room Air Allergies/Adverse Reactions: No Known Allergies Allergy (Verified 04/18/19 00:57) Home Medications: Medication Instructions Recorded NK [No Known Home Meds] 04/18/19 Medical Decision Making - Data Points Medications Given: Discontinued Medications Acetaminophen (Tylenol) 1,000 mg PO EDNOW ONE Stop: 04/18/19 01:02 Last Admin: 04/18/19 01:11 Dose: 1,000 mg Departure - Departure Disposition: Home, Routine, Self-Care Clinical Impression: Wrist fracture Qualifiers: Encounter type: initial encounter Fracture type: closed Laterality: right Qualified Code(s): S62.101A - Fracture of unspecified carpal bone, right wrist, initial encounter for closed fracture Condition: Good Instructions: Wrist Fracture in Adults (ED) Additional Instructions: 1. Splint. 2. Anti-inflammatory pain medicine. 3. Ice. 4. Follow up with Orthopedics Referrals: NONE *PRIMARY CARE P,. [Primary Care Provider] - As per Instructions Syed Ramirez MD [Medical Doctor] - As per Instructions
[2019-04-18] MEDS ORDERED: ACETAMINOPHEN 500 MG TAB PO ONE (01:01)
[2019-04-18 02:42] VITALS: BP 136/80
== END 2019-04-18 02:43 | disposition home or self-care (01) ==
DX: S62.101A Fracture of unspecified carpal bone, right wrist, initial encounter for closed fracture (principal); W19.XXXA Unspecified fall, initial encounter; Z59.0 Homelessness
CPT/HCPCS: A4565